=== PATIENT | male | born 1970 | race Caucasian/White ===

== ENCOUNTER 2016-12-20 10:20 | Emergency (ER) | payer SELFPAY ==
[2016-12-20 10:36] VITALS: BP 127/88
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
[2016-12-20 15:07] LABS: Hematocrit 45 % (42-52); Hemoglobin 15.9 g/dl (14.0-18.0); Mean Corpuscular HGB Conc 35 g/dl (31-36); Mean Corpuscular Hemoglobin 31 pg (27-31); Mean Corpuscular Volume 87 fL (80-94); Mean Platelet Volume 9 um3 (7.4-10.4); Red Cell Distribution Width 13 % (10.5-15)
[2016-12-20 15:31] LABS: BUN/Creatinine Ratio 14.8 (8-20); Calcium 9.8 mg/dL (8.6-10.3); EGFR African American 88.8 (>60); EGFR Non-African American 69.1 (>60); Potassium 4.1 mmol/L (3.5-5.0); Uric Acid 6.6 mg/dL (4.4-7.6)
--- NOTE | 2016-12-21 08:17 | ED ---
Progress - Progress Note Progress Note: cbc. cmp, urica acid, and crp with no acute changes. if worse er. Course/Dx - Course Course Of Treatment: sudden onset and severity suggestive of gout; findings are minimal but sx present only for hours. Has risk factors for gout of daily beer drinking and high intake of meat. No indication for imaging. Suggested beginning indocid and lab work for gout. Overuse syndrome RUE and ganglion cyst. - Diagnoses Provider Diagnoses: Arm pain
== END 2016-12-20 12:28 | disposition home or self-care (01) ==
LOC: UCCORT 10:20
DX: M67.431 Ganglion, right wrist (principal); M70.831 Other soft tissue disorders related to use, overuse and pressure, right forearm; M25.571 Pain in right ankle and joints of right foot
CPT/HCPCS: 36415; 80048; 84550; 85025; 86141; 99202; G0463

== ENCOUNTER 2018-12-06 16:30 | Emergency (ER) | payer SELFPAY ==
[2018-12-06 17:00] VITALS: BP 160/107
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
[2018-12-06] MEDS ORDERED: Ibuprofen TAB* 600 MG PO ONE (17:48)
== END 2018-12-06 18:37 | disposition home or self-care (01) ==
LOC: UCCORT 16:30
DX: M54.2 Cervicalgia (principal); M25.512 Pain in left shoulder
CPT/HCPCS: 72050; 93005; 99213; A9270-GY; G0463